=== PATIENT | female | born 1990 | race Caucasian/White ===

== ENCOUNTER 2019-07-05 16:53 | Emergency (ER) | payer OTHER ==
[2019-07-05 17:22] LABS: ABS Eosinophils 0.3 10^3/ul (0-0.6); ABS Lymphocytes 2.4 10^3/ul (1.0-4.8); ABS Monocytes 0.5 10^3/ul (0-0.8); ABS Neutrophils 3.9 10^3/ul (1.5-7.7); Eosinophil % 4.8 %; Hematocrit 38 % (35-47); Hemoglobin 13.5 g/dL (12.0-16.0); Mean Corpuscular HGB Conc 35 g/dL (31-36); Mean Corpuscular Hemoglobin 33 pg (27-31); Mean Corpuscular Volume 94 fL (80-97); Mean Platelet Volume 8.9 fL (7.4-10.4); Platelet Count 275 10^3/uL (150-450); Red Blood Count 4.06 10^6 /uL (3.70-4.87); Red Cell Distribution Width 13 % (10-15); White Blood Count 7.1 10^3/uL (3.5-10.8)
--- NOTE | 2019-07-05 17:28 | ED ---
Psychiatric Complaint - HPI Summary HPI Summary: Pt is a 29 y/o F presenting to the ED with a chief complaint of an overdose. Pt states she has been having a difficult time with her depression, and since roughly yesterday she has had a persistent thought that she needs to kill herself that she calls a compulsive loop. She notes that she drank heavily this past summer into the beginning of the semester, but had not drank for about 7 weeks. She also quit smoking over this past weekend. She took roughly 20 tablets (1 handful) of Benadryl and took them with gin. She vomited once, only vomiting the gin. She says she has tried to kill herself before when she was [age], but states it was a very specific response to a fight she was having with her parents at the time. Patients medications reviewed. - History Of Current Complaint Chief Complaint: EDOverdose Time Seen by Provider: 07/05/19 17:01 Hx Obtained From: Patient Onset/Duration: Gradual Onset, Lasting Days, Still Present Timing: Constant Severity Initially: Moderate Severity Currently: Moderate Character: Depressed Aggravating Factor(s): Nothing Alleviating Factor(s): Nothing Associated Signs And Symptoms: Positive: Negative Has Suicidal: Reports: Thoughts, With A Plan, Has Prior Attempt(s) - "when i was 15 in reaction to fighting with my parents" Recent Stressor(s): quit smoking over weekend, states this did not bother her much Ingestion History: Type/Name Of Drug - benadryl - diphenhydramine, mixed w/ some gin, Amount Ingested - about 20 tablets, 500mg, Approximate Time Of Ingestion - prior to arrival PMH/Surg Hx/FS Hx/Imm Hx Previously Healthy: Yes Endocrine/Hematology History: Denies: Hx Diabetes Psychiatric History: Reports: Hx Depression Infectious Disease History: No Infectious Disease History: Denies: Traveled Outside the [place] in Last 30 Days - Family History Known Family History: Negative: Diabetes - Social History Occupation: Student Alcohol Use: drank heavily in summer. stopped Hx Substance Use: Yes Substance Use Type: Reports: Marijuana Hx Tobacco Use: Yes Smoking Status (MU): Former Smoker - quit 07/02/19 Review of Systems Positive: Vomiting Positive: Depressed All Other Systems Reviewed And Are Negative: Yes Physical Exam Triage Information Reviewed: Yes Vital Signs On Initial Exam: Initial Vitals Temp Pulse Resp BP Pulse Ox 98.2 F 80 18 136/80 98 07/05/19 17:00 07/05/19 17:00 07/05/19 17:00 07/05/19 17:00 07/05/19 17:00 Vital Signs Reviewed: Yes Procedures - Sedation Patient Received Moderate/Deep Sedation with Procedure: No Diagnostics - Vital Signs Vital Signs Temp Pulse Resp BP Pulse Ox 07/05/19 17:00 98.2 F 80 18 136/80 98 - Laboratory Result Diagrams: 07/05/19 17:14 07/05/19 17:14 Lab Statement: Any lab studies that have been ordered have been reviewed, and results considered in the medical decision making process. - EKG 1701 Cardiac Rate: NL - 80bpm EKG Rhythm: Sinus Rhythm ST Segment: Normal Ectopy: None Summary of EKG Findings: EKG at 1701 shows NSR at 80bpm with Q wave in lead II. ED physician has reviewed and interpreted this EKG. Course/Dx - Differential Dx/Clinical Impression Provider Diagnosis: Depressive disorder, Dissociative episodes Discharge ED - Sign-Out/Discharge Documenting (check all that apply): Sign-Out Patient Signing out patient TO: Enedelia Marcelo - Discharge Plan Condition: Stable Disposition: HOME Referrals: Care [facility] [Outside] - Billing Disposition and Condition Condition: STABLE Disposition: Home - Attestation Statements Document Initiated by Jessicaibe: Yes Documenting Scribe: Charlene Alberto Provider For Whom Jessicaibe is Documenting (Include Credential): Jackie Barrett MD. Scribe Attestation: Charlene Josue, scribed for Jackie Barrett MD. on 07/09/19 at 1452. Scribe Documentation Reviewed: Yes Provider Attestation: The documentation as recorded by the scribeCharlene accurately reflects the service I personally performed and the decisions made by me, Jackie Barrett MD. Status of Scribe Document: Viewed
[2019-07-05] MEDS: Charcoal ACTIVATED* 25 GM/120 ML BTL PO ONE (17:32)
[2019-07-05] MEDS: NS 0.9% 1000 ML** 1,000 ML IV ONE (17:37)
[2019-07-05 17:39] LABS: ALT 13 U/L (7-52); AST 18 U/L (13-39); Albumin 4.2 g/dL (3.2-5.2); Albumin/Globulin Ratio 1.4 (1-3); Alkaline Phosphatase 42 U/L (34-104); Anion Gap 8 mmol/L (2-11); BUN/Creatinine Ratio 9.7 (8-20); Blood Urea Nitrogen 9 mg/dL (6-24); CO2 Carbon Dioxide 24 mmol/L (22-32); Calcium 9.4 mg/dL (8.6-10.3); Chloride 106 mmol/L (101-111); EGFR African American 86.2 (>60); EGFR Non-African American 71.3 (>60); Glucose 110 mg/dL (70-100); Potassium 3.7 mmol/L (3.5-5.0); Sodium 138 mmol/L (135-145); Total Protein 7.2 g/dL (6.4-8.9)
[2019-07-05 17:45] LABS: HCG Pregnancy < 0.60 mIU/mL
[2019-07-05 18:04] LABS: Urine Benzodiazepine Screen None Detected (None Detect); Urine Opiates Screen None Detected (None Detect)
[2019-07-05 18:10] LABS: Urine Appearance Clear; Urine Bacteria Absent (Absent); Urine Bilirubin Negative (Negative); Urine Blood 1+ (Negative); Urine Color Straw; Urine Glucose Negative (Negative); Urine Ketones Negative (Negative); Urine Nitrite Negative (Negative); Urine Protein Negative (Negative); Urine Red Blood Cell Trace(0-2/hpf) (Absent); Urine Specific Gravity 1.005 (1.010-1.030); Urine Squamous Epithelial Cell Present (Absent); Urine Urobilinogen Negative (Negative); Urine White Blood Cell Absent (Absent)
[2019-07-05 18:18] LABS: Acetaminophen < 15 mcg/mL; Alcohol < 10 mg/dL (<10); Salicylate < 2.50 mg/dL (<30)
[2019-07-05 18:32] LABS: TSH (Thyroid Stimulating Horm) 4.98 mcIU/mL (0.34-5.60)
--- NOTE | 2019-07-05 19:33 | ED ---
Progress - Progress Note Progress Note: Patient is received as a sign out from Dr. Barrett to Dr. Marcelo at 1900 shift change pending MHE and disposition of this mental health patient. Patient has been stable throughout duration of shift. MHE was conducted. 556 - display associate Adilene states that the patient's case was reviewed with Dr. Amaya. Patient will be a mental health hold. Patient is signed out to Dr. Eubanks at 0700 07/06/19 shift change pending disposition of this MH patient. Course/Dx - Diagnoses Provider Diagnoses: Depressive disorder - Provider Notifications Discussed Care Of Patient With: Bryn Amaya Time Discussed With Above Provider: 05:57 Instructed by Provider To: Other - 556 - display associate Adilene states that the patient's case was reviewed with Dr. Amaya. Patient will be a mental health hold. Discharge ED - Sign-Out/Discharge Documenting (check all that apply): Sign-Out Patient, Receiving Sign-Out Signing out patient TO: Lawrence Eubanks Receiving patient FROM: Jackie Barrett - Discharge Plan Condition: Stable Referrals: No Primary Care Phys,[facility] [Primary Care Provider] - - Billing Disposition and Condition Condition: STABLE - Attestation Statements Document Initiated by Scribe: Yes Documenting Scribe: MARY DONALD Provider For Whom Loyd is Documenting (Include Credential): ALFREDO MARCELO MD Scribe Attestation: MARY Josue, scribed for ALFREDO MARCELO MD on 07/06/19 at 0630. Scribe Documentation Reviewed: Yes Provider Attestation: The documentation as recorded by the MARY zavaleta accurately reflects the service I personally performed and the decisions made by me, ALFREOD MARCELO MD Status of Scribe Document: Viewed
--- NOTE | 2019-07-06 07:18 | ED ---
Progress - Progress Note Progress Note: Patient is a sign-out at 07:00 on 07/06/[address] Enedelia Marcelo MD to Dr. Lawrence Eubanks MD at shift change, pending hold and disposition. At 09:11, instructor nurse reports that patient's case was reviewed by Dr. Uday Casiano. Patient is pending disposition once appropriate outpatient care is available. At 09:52, MH instructor nurse reports that patient will be discharged with a diagnosis of dissociative episode. Patient will be discharged with a diagnosis of dissociative episode. - Consult/PCP Time Called: 00:40 Course/Dx - Course Course Of Treatment: Patient is a sign-out at 07:00 on 07/06/[address] Enedelia Marcelo MD to Dr. Lawrence Eubanks MD at shift change, pending hold and disposition. At 09:11, instructor nurse reports that patient's case was reviewed by Dr. Uday Casiano. Patient is pending disposition once appropriate outpatient care is available. At 09:52, instructor nurse reports that patient will be discharged with a diagnosis of dissociative episode. Patient will be discharged with a diagnosis of dissociative episode. - Diagnoses Provider Diagnoses: Depressive disorder, Dissociative episodes - Provider Notifications Time Discussed With Above Provider: 05:57 Instructed by Provider To: Other - [id number] - instructor nurse Adilene states that the patient's case was reviewed with Dr. Amaya. Patient will be a mental health hold. Discharge ED - Sign-Out/Discharge Documenting (check all that apply): Patient Departure - Discharge, Receiving Sign-Out Receiving patient FROM: Enedelia Marcelo - 07:00 on 07/06/19 - Discharge Plan Condition: Stable Disposition: HOME Referrals: Care [facility] [Outside] - Billing Disposition and Condition Condition: STABLE Disposition: Home - Attestation Statements Document Initiated by Scribe: Yes Documenting Scribe: Gabbie Mabry Provider For Whom Loyd is Documenting (Include Credential): Lawrence Eubanks MD Scribe Attestation: Gabbie Josue scrmaryjoed for Lawrence Eubanks MD on 07/06/19 at 1324. Scribe Documentation Reviewed: Yes Provider Attestation: The documentation as recorded by the scribe, Gabbie Amquy accurately reflects the service I personally performed and the decisions made by me, Lawrence Eubanks MD Status of Scribe Document: Viewed
[2019-07-06 09:59] VITALS: BP 125/74
== END 2019-07-06 10:15 | disposition home or self-care (01) ==
LOC: ED 16:53
DX: T45.0X2A Poisoning by antiallergic and antiemetic drugs, intentional self-harm, initial encounter (principal); F32.9 Major depressive disorder, single episode, unspecified; F44.9 Dissociative and conversion disorder, unspecified; Y92.9 Unspecified place or not applicable; Z87.891 Personal history of nicotine dependence
CPT/HCPCS: 36415; 80053; 80307; 80320; 80329; 81003; 81015; 84443; 84702; 85025; 93005; 96360; 99285; A9270-GY; G0480